=== PATIENT | female | born 1985 | race Two or more races ===

== ENCOUNTER 2022-12-13 22:37 | Emergency (ER) | payer OTHER ==
[~2022-12-13] VITALS: Ht 170.2 cm; Wt 90.7 kg
[2022-12-13] MEDS ORDERED: TRANXENE T-TAB7.5 MG PO (22:58)
== END 2022-12-13 23:34 | disposition home or self-care (01) ==
LOC: ER 22:37
DX: H61.21 Impacted cerumen, right ear (principal)